=== PATIENT | female | born 1950 | race Asian ===

== ENCOUNTER 2018-01-17 17:07 | Emergency (ER) | payer OTHER ==
[~2018-01-17] VITALS: Ht 157.5 cm; Wt 51.7 kg
[2018-01-17 17:30] VITALS: BP 139/77; Ht 157.5 cm; Wt 51.7 kg
== END 2018-01-17 18:54 | disposition left against medical advice (07) ==
LOC: ED 17:07
DX: Z53.21 Procedure and treatment not carried out due to patient leaving prior to being seen by health care provider (principal)